=== PATIENT | female | born 1985 | race Caucasian/White ===

== ENCOUNTER 2017-04-09 13:14 | Emergency (ER) | payer MEDICARE ==
[~2017-04-09 13:14] MED LIST: BACTRIM DS TAB1 EACH PO; HYDROCHLOROTHIA25 MG PO; LISINOPRIL20 MG PO; METOPROLOL TART50 MG PO; PROZAC40 MG PO; SEROQUEL100 MG PO
[2017-07-14] MEDS ORDERED: NEURONTIN 300300 MG PO (18:36)
[2017-07-16] MEDS ORDERED: CLINDAMYCIN HC300 MG PO (12:29)
== END 2017-04-09 14:34 | disposition home or self-care (01) ==
LOC: ER1 13:14
DX: Z48.817 Encounter for surgical aftercare following surgery on the skin and subcutaneous tissue (principal); I10 Essential (primary) hypertension; F17.210 Nicotine dependence, cigarettes, uncomplicated; Z88.0 Allergy status to penicillin; Z88.8 Allergy status to other drugs, medicaments and biological substances
CPT/HCPCS: 99282

== ENCOUNTER → 2017-04-10 | Outpatient (CLI) | payer MEDICARE ==
[~2017-04-10] MED LIST changes: +CLINDAMYCIN HC300 MG PO; +NEURONTIN 300300 MG PO
== END ==
LOC: OPSV 04-09 08:39
DX: L02.512 Cutaneous abscess of left hand (principal)
CPT/HCPCS: G0463

== ENCOUNTER → 2017-04-11 | Outpatient (CLI) | payer MEDICARE | LOC: OPSV 13:25 | DX: L02.512 Cutaneous abscess of left hand (principal) | CPT/HCPCS: G0463 ==

== ENCOUNTER → 2017-04-12 | Outpatient (CLI) | payer MEDICARE | LOC: OPSV 11:20 | DX: L02.512 Cutaneous abscess of left hand (principal) | CPT/HCPCS: G0463 ==

== ENCOUNTER → 2021-02-04 | Outpatient (CLI) | payer OTHER ==
[~2021-02-04] MED LIST changes: +BASAGLAR K100 UNIT/1 SQ; +HUMALOG100 UNIT/3 SC; +KEFLEX500 MG PO; +LISINOPRIL10 MG PO; -LISINOPRIL20 MG PO; +LYRICA200 MG PO; +METHADONE HCL10 MG PO; +METOPROLOL TART25 MG PO; -METOPROLOL TART50 MG PO; +NAPROSYN500 MG PO; +POVIDONE-IOD28.35 GM TOP; +PROZAC 20 MG CA20 MG PO; +SILVER SULFADIAZINE TOP; +SKIN TREATMENT400 GM TOP; +VITAMIN D325 MCG PO; +VRAYLAR4.5 MG PO; +Voltaren Gel 1 % TOP
== END ==
LOC: WCC 10:15
DX: E11.622 Type 2 diabetes mellitus with other skin ulcer (principal); T23.201A Burn of second degree of right hand, unspecified site, initial encounter; E11.610 Type 2 diabetes mellitus with diabetic neuropathic arthropathy; L97.925 Non-pressure chronic ulcer of unspecified part of left lower leg with muscle involvement without evidence of necrosis; G47.30 Sleep apnea, unspecified; I10 Essential (primary) hypertension; Z79.4 Long term (current) use of insulin; Z72.0 Tobacco use; X58.XXXA Exposure to other specified factors, initial encounter

== ENCOUNTER → 2021-02-11 | Outpatient (CLI) | payer OTHER | LOC: WCC 09:00 | DX: T23.201A Burn of second degree of right hand, unspecified site, initial encounter (principal); E10.622 Type 1 diabetes mellitus with other skin ulcer; E10.610 Type 1 diabetes mellitus with diabetic neuropathic arthropathy; L97.925 Non-pressure chronic ulcer of unspecified part of left lower leg with muscle involvement without evidence of necrosis; G47.30 Sleep apnea, unspecified; I10 Essential (primary) hypertension; Z79.4 Long term (current) use of insulin; Z72.0 Tobacco use; X58.XXXA Exposure to other specified factors, initial encounter | CPT/HCPCS: 73562; 73590; 83036; 87070; 87205 ==

== ENCOUNTER → 2021-02-19 | Outpatient (CLI) | payer OTHER | LOC: WCC 11:12 | DX: E10.622 Type 1 diabetes mellitus with other skin ulcer (principal); L97.925 Non-pressure chronic ulcer of unspecified part of left lower leg with muscle involvement without evidence of necrosis; T23.261A Burn of second degree of back of right hand, initial encounter; T31.0 Burns involving less than 10% of body surface; E10.610 Type 1 diabetes mellitus with diabetic neuropathic arthropathy; G47.30 Sleep apnea, unspecified; I10 Essential (primary) hypertension; F17.210 Nicotine dependence, cigarettes, uncomplicated; Z79.2 Long term (current) use of antibiotics; Z79.899 Other long term (current) drug therapy ==

== ENCOUNTER → 2021-02-26 | Outpatient (CLI) | payer OTHER | LOC: WCC 11:00 | DX: E10.622 Type 1 diabetes mellitus with other skin ulcer (principal); L97.925 Non-pressure chronic ulcer of unspecified part of left lower leg with muscle involvement without evidence of necrosis; T23.261D Burn of second degree of back of right hand, subsequent encounter; T31.0 Burns involving less than 10% of body surface; E10.610 Type 1 diabetes mellitus with diabetic neuropathic arthropathy; I10 Essential (primary) hypertension; F17.210 Nicotine dependence, cigarettes, uncomplicated; G47.30 Sleep apnea, unspecified; Z79.2 Long term (current) use of antibiotics; Z79.899 Other long term (current) drug therapy; X08.8XXD Exposure to other specified smoke, fire and flames, subsequent encounter | CPT/HCPCS: 82962 ==

== ENCOUNTER → 2021-03-05 | Outpatient (CLI) | payer OTHER | LOC: WCC 11:00 | DX: E10.622 Type 1 diabetes mellitus with other skin ulcer (principal); L97.925 Non-pressure chronic ulcer of unspecified part of left lower leg with muscle involvement without evidence of necrosis; T23.261D Burn of second degree of back of right hand, subsequent encounter; T31.0 Burns involving less than 10% of body surface; E10.610 Type 1 diabetes mellitus with diabetic neuropathic arthropathy; G47.30 Sleep apnea, unspecified; I10 Essential (primary) hypertension; F17.210 Nicotine dependence, cigarettes, uncomplicated; Z79.2 Long term (current) use of antibiotics; Z79.899 Other long term (current) drug therapy ==

== ENCOUNTER → 2021-03-11 | Outpatient (CLI) | payer OTHER | LOC: WCC 10:45 | DX: S81.002A Unspecified open wound, left knee, initial encounter (principal); T23.261A Burn of second degree of back of right hand, initial encounter; E10.622 Type 1 diabetes mellitus with other skin ulcer; E10.610 Type 1 diabetes mellitus with diabetic neuropathic arthropathy; I10 Essential (primary) hypertension; Z79.4 Long term (current) use of insulin; I96 Gangrene, not elsewhere classified; G47.30 Sleep apnea, unspecified; Z72.0 Tobacco use; T31.0 Burns involving less than 10% of body surface; V89.2XXA Person injured in unspecified motor-vehicle accident, traffic, initial encounter ==

== ENCOUNTER → 2021-04-12 | Outpatient (CLI) | payer OTHER | LOC: WCC 14:06 | DX: E10.622 Type 1 diabetes mellitus with other skin ulcer (principal); L97.925 Non-pressure chronic ulcer of unspecified part of left lower leg with muscle involvement without evidence of necrosis; E10.610 Type 1 diabetes mellitus with diabetic neuropathic arthropathy; T23.201A Burn of second degree of right hand, unspecified site, initial encounter; G47.30 Sleep apnea, unspecified; I10 Essential (primary) hypertension; F17.210 Nicotine dependence, cigarettes, uncomplicated; Z79.899 Other long term (current) drug therapy ==

== ENCOUNTER → 2021-04-22 | Outpatient (CLI) | payer OTHER | LOC: WCC 08:30 | PROC: 0JBP0ZZ Excision of Left Lower Leg Subcutaneous Tissue and Fascia, Open Approach (ICD-10-PCS; principal; 2021-04-22) | DX: S81.002A Unspecified open wound, left knee, initial encounter (principal); E10.622 Type 1 diabetes mellitus with other skin ulcer; L97.825 Non-pressure chronic ulcer of other part of left lower leg with muscle involvement without evidence of necrosis; E10.610 Type 1 diabetes mellitus with diabetic neuropathic arthropathy; T23.201A Burn of second degree of right hand, unspecified site, initial encounter; F17.210 Nicotine dependence, cigarettes, uncomplicated; G47.30 Sleep apnea, unspecified; I10 Essential (primary) hypertension; I49.9 Cardiac arrhythmia, unspecified; E10.40 Type 1 diabetes mellitus with diabetic neuropathy, unspecified; Z79.899 Other long term (current) drug therapy; V89.2XXA Person injured in unspecified motor-vehicle accident, traffic, initial encounter; X08.8XXA Exposure to other specified smoke, fire and flames, initial encounter ==

== ENCOUNTER 2021-04-25 01:11 | Inpatient (IN) | payer OTHER ==
[~2021-04-25] VITALS: Ht 195.6 cm; Wt 131.5 kg
[~2021-04-25 01:11] MED LIST changes: -BASAGLAR K100 UNIT/1 SQ; -HUMALOG100 UNIT/3 SC; -LISINOPRIL10 MG PO; -LYRICA200 MG PO; -METHADONE HCL10 MG PO; -METOPROLOL TART25 MG PO; -POVIDONE-IOD28.35 GM TOP; -PROZAC40 MG PO; -SILVER SULFADIAZINE TOP; -SKIN TREATMENT400 GM TOP; -VITAMIN D325 MCG PO; -VRAYLAR4.5 MG PO
[2021-04-25] MEDS ORDERED: METOPROLOL TART25 MG PO (01:53)
[2021-04-25] MEDS ORDERED: PROZAC40 MG PO (01:56)
[2021-04-25] MEDS ORDERED: LISINOPRIL10 MG PO (01:56)
[2021-04-25 03:40] LABS: HEMOGLOBIN 12.6 gm/dl (12.3-15.3); RED BLOOD COUNT 4.64 M/UL (4.00-5.10); WHITE BLOOD COUNT 14.6 K/UL (4.5-11.0)
[2021-04-25 03:57] LABS: BUN/CREATININE RATIO 16 (0-10)
[2021-04-25] MEDS ORDERED: POVIDONE-IOD28.35 GM TOP (10:49)
[2021-04-25] MEDS ORDERED: SKIN TREATMENT400 GM TOP (10:50)
[2021-04-25] MEDS ORDERED: SILVER SULFADIAZINE TOP (10:52)
[2021-04-25] MEDS ORDERED: VRAYLAR4.5 MG PO (10:53)
[2021-04-25] MEDS ORDERED: LYRICA200 MG PO (10:53)
[2021-04-25] MEDS ORDERED: BACTRIM DS TAB1 EACH PO (10:53)
[2021-04-25] MEDS ORDERED: HUMALOG100 UNIT/3 SC (10:59)
[2021-04-25] MEDS ORDERED: BASAGLAR K100 UNIT/1 SQ (11:00)
[2021-04-25] MEDS ORDERED: METHADONE HCL10 MG PO (11:03)
[2021-04-26 07:34] LABS: RED BLOOD COUNT 4.65 M/UL (4.00-5.10); WHITE BLOOD COUNT 7.4 K/UL (4.5-11.0)
[2021-04-26 07:43] LABS: BUN/CREATININE RATIO 20 (0-10)
[2021-04-27 05:06] LABS: HEMOGLOBIN 12.8 gm/dl (12.3-15.3); RED BLOOD COUNT 4.76 M/UL (4.00-5.10); WHITE BLOOD COUNT 8.3 K/UL (4.5-11.0)
[2021-04-27 05:27] LABS: BUN/CREATININE RATIO 18 (0-10)
--- NOTE | 2021-04-27 23:07 | NUR ---
PT DEVELOPED HIVES ON ARM AFTER GETTING BLOOD PRESSURE TAKEN ON ARM THE IV AND VANCOMYCIN WAS RUNNING IN. BLOOD PRESSURE CUFF WAS ON UPPER ARM, IV WAS ON LOWER. IV WAS IMMEDIATELY STOPPED. PLACEMENT OF IV WAS VERIFIED. DR. CHA WAS CONTACTED AND SAID IT WAS LIKELY A REACTION TO THE VANCOMYCIN AND ORDERED BENADRYL. BEFORE BENADRYL COULD BE ADMINISTERED, PATIENT LEFT FLOOR TO SMOKE.
[2021-04-28 05:13] LABS: HEMOGLOBIN 12.3 gm/dl (12.3-15.3); RED BLOOD COUNT 4.63 M/UL (4.00-5.10); WHITE BLOOD COUNT 8.7 K/UL (4.5-11.0)
[2021-04-28] MEDS ORDERED: BACTRIM DS TAB1 EACH PO (10:35)
[2021-04-28] MEDS ORDERED: VITAMIN D325 MCG PO (10:37)
== END 2021-04-28 12:30 | disposition home or self-care (01) | DRG 623 ==
LOC: ER1 01:11 → CDU 05:37 → M/S 15:14
PROVIDERS: Emergency Medicine; Internal Medicine; Physician Assistant Medical; ADMIT Internal Medicine
PROC: 0JBQ0ZZ Excision of Right Foot Subcutaneous Tissue and Fascia, Open Approach (ICD-10-PCS; principal; 2021-04-27)
PROC: 0HBRXZZ Excision of Toe Nail, External Approach (ICD-10-PCS; 2021-04-27)
DX: E11.621 Type 2 diabetes mellitus with foot ulcer (principal); L97.419 Non-pressure chronic ulcer of right heel and midfoot with unspecified severity; L03.115 Cellulitis of right lower limb; M86.8X7 Other osteomyelitis, ankle and foot; F32.9 Major depressive disorder, single episode, unspecified; E11.40 Type 2 diabetes mellitus with diabetic neuropathy, unspecified; F41.9 Anxiety disorder, unspecified; E66.9 Obesity, unspecified; E11.69 Type 2 diabetes mellitus with other specified complication; E11.628 Type 2 diabetes mellitus with other skin complications; E55.9 Vitamin D deficiency, unspecified; B37.3 Candidiasis of vulva and vagina; Z20.822 Contact with and (suspected) exposure to COVID-19; F17.210 Nicotine dependence, cigarettes, uncomplicated; I10 Essential (primary) hypertension; Z83.3 Family history of diabetes mellitus; Z98.890 Other specified postprocedural states; Z68.34 Body mass index [BMI] 34.0-34.9, adult
CPT/HCPCS: 36415; 73620; 73721; 80048; 80053; 80202; 82550; 82553; 82962; 83036; 83735; 84439; 84443; 84484; 85025; 85027; 85652; 86140; 87040; 87070; 87077; 87186; 87205; 93005; 93926; 93970; 96365; 96366; 96367; 96372; 96375; 96376; 99285; G0378; J1200; J1650; J1885; J1956; J2185; J3370; J7030; J7050; J7070; U0002

== ENCOUNTER → 2021-04-30 | Outpatient (CLI) | payer OTHER ==
[~2021-04-30] MED LIST changes: +BASAGLAR K100 UNIT/1 SQ; +HUMALOG100 UNIT/3 SC; +LISINOPRIL10 MG PO; +LYRICA200 MG PO; +METHADONE HCL10 MG PO; +METOPROLOL TART25 MG PO; +POVIDONE-IOD28.35 GM TOP; +PROZAC40 MG PO; +SILVER SULFADIAZINE TOP; +SKIN TREATMENT400 GM TOP; +VITAMIN D325 MCG PO; +VRAYLAR4.5 MG PO
== END ==
LOC: WCC 10:55
DX: E10.622 Type 1 diabetes mellitus with other skin ulcer (principal); E10.610 Type 1 diabetes mellitus with diabetic neuropathic arthropathy; L97.925 Non-pressure chronic ulcer of unspecified part of left lower leg with muscle involvement without evidence of necrosis; G47.30 Sleep apnea, unspecified; I10 Essential (primary) hypertension; T23.201A Burn of second degree of right hand, unspecified site, initial encounter; Z79.4 Long term (current) use of insulin; Z72.0 Tobacco use
CPT/HCPCS: 97597

== ENCOUNTER 2021-10-20 19:33 | Emergency (ER) | payer OTHER ==
[2021-10-20] MEDS ORDERED: CYCLOBENZAPRINE10 MG PO (21:09)
[2021-10-20] MEDS ORDERED: PREDNISONE 20 M20 MG PO (21:09)
[2021-10-20] MEDS ORDERED: HYDROCODON-ACE1 EAC4 PO (21:09)
== END 2021-10-20 21:48 | disposition home or self-care (01) ==
LOC: ER1 19:33
DX: M54.41 Lumbago with sciatica, right side (principal); I10 Essential (primary) hypertension; E11.40 Type 2 diabetes mellitus with diabetic neuropathy, unspecified; Z88.0 Allergy status to penicillin; F17.200 Nicotine dependence, unspecified, uncomplicated
CPT/HCPCS: 72131; 96372; 99283; J1885

== ENCOUNTER → 2021-11-10 | Outpatient (CLI) | payer OTHER ==
[~2021-11-10] MED LIST changes: +CYCLOBENZAPRINE10 MG PO; +HYDROCODON-ACE1 EAC4 PO; +PREDNISONE 20 M20 MG PO
== END ==
LOC: RAD 17:21
DX: M54.31 Sciatica, right side (principal); R04.2 Hemoptysis; M47.816 Spondylosis without myelopathy or radiculopathy, lumbar region; R91.8 Other nonspecific abnormal finding of lung field
CPT/HCPCS: 71046; 73502

== ENCOUNTER 2021-11-15 14:58 | Inpatient (IN) | payer OTHER ==
[~2021-11-15] VITALS: Ht 195.6 cm; Wt 152.4 kg
[~2021-11-15 14:58] MED LIST changes: -METHADONE HCL10 MG PO; -PROZAC 20 MG CA20 MG PO
[2021-11-15 17:30] LABS: HEMOGLOBIN 12.2 gm/dl (12.3-15.3); RED BLOOD COUNT 4.59 M/UL (4.00-5.10); WHITE BLOOD COUNT 11.3 K/UL (4.5-11.0)
[2021-11-15 17:56] LABS: BUN/CREATININE RATIO 16 (0-10)
[2021-11-16 05:21] LABS: HEMOGLOBIN 12.7 gm/dl (12.3-15.3); RED BLOOD COUNT 4.91 M/UL (4.00-5.10); WHITE BLOOD COUNT 8.8 K/UL (4.5-11.0)
[2021-11-16 05:56] LABS: BUN/CREATININE RATIO 18 (0-10)
[2021-11-16] MEDS ORDERED: PROZAC 20 MG CA20 MG PO (10:55)
[2021-11-16] MEDS ORDERED: METHADONE10 MG/1 M1 PO (11:03)
[2021-11-16] MEDS ORDERED: ALBUTEROL2.5 MG/3 M NEB (14:08)
[2021-11-16] MEDS ORDERED: LEVOFLOXACIN750 MG PO (14:08)
[2021-11-16] MEDS ORDERED: PROAIR DIGIHAL90 MCG INH (14:09)
[2021-11-16] MEDS ORDERED: TIZANIDINE HCL4 MG PO (14:09)
[2021-11-16] MEDS ORDERED: DIPROSONE 0.05%15 GM TOP (14:10)
[2021-11-16] MEDS ORDERED: DOCUSATE SODIU100 MG PO (14:12)
[2021-11-16] MEDS ORDERED: TRULICITY1.5 MG/0.5 SQ (14:13)
[2021-11-16] MEDS ORDERED: GLIPIZIDE5 MG PO (14:13)
[2021-11-16] MEDS ORDERED: QUETIAPINE FUM200 MG PO (14:14)
[2021-11-16] MEDS ORDERED: NEXIUM40 MG PO (14:15)
[2021-11-16 14:40] LABS: BORDETELLA PARAPERTUSSIS Not Detected (Not Detectd); BORDETELLA PERTUSSIS Not Detected (Not Detectd); CHLAMYDIA PNEUMONIAE Not Detected (Not Detectd); CORONAVIRUS HKU1 Not Detected (Not Detectd); CORONAVIRUS NL63 Not Detected (Not Detectd); CORONAVIRUS OC43 Not Detected (Not Detectd); CORONOAVIRUS 229E Not Detected (Not Detectd); HUMAN METAPNEUMOVIRUS Not Detected (Not Detectd); HUMAN RHINOVIRUS/ENTEROVIRUS Not Detected (Not Detectd); INFLUENZA A Not Detected (Not Detectd); INFLUENZA B Not Detected (Not Detectd); MYCOPLASMA PNEUMONIAE Not Detected (Not Detectd); PARAINFLUENZA VIRUS 1 Not Detected (Not Detectd); PARAINFLUENZA VIRUS 2 Not Detected (Not Detectd); PARAINFLUENZA VIRUS 3 Not Detected (Not Detectd); PARAINFLUENZA VIRUS 4 Not Detected (Not Detectd); RESPIRATORY SYNCYTIAL VIRUS Not Detected (Not Detectd)
[2021-11-16 16:00] LABS: SARS-CoV-2 NOT DETECTED (Not Detectd)
[2021-11-17 08:19] LABS: HEMOGLOBIN 11.9 gm/dl (12.3-15.3); RED BLOOD COUNT 4.54 M/UL (4.00-5.10); WHITE BLOOD COUNT 9.6 K/UL (4.5-11.0)
[2021-11-17 08:40] LABS: BUN/CREATININE RATIO 27 (0-10)
[2021-11-17] MEDS ORDERED: [UNRECOGNIZED DRUG - OTHER] SC (14:12)
[2021-11-17] MEDS ORDERED: [UNRECOGNIZED DRUG - OTHER] (17:19)
[2021-11-18 06:56] LABS: RED BLOOD COUNT 4.64 M/UL (4.00-5.10); WHITE BLOOD COUNT 7.9 K/UL (4.5-11.0)
[2021-11-18 07:22] LABS: BUN/CREATININE RATIO 32 (0-10)
[2021-11-18] MEDS ORDERED: ZITHROMAX500 MG PO (15:36)
[2021-11-18] MEDS ORDERED: LASIX 40 MG TAB40 MG PO (16:02)
[2021-11-18] MEDS ORDERED: KLOR-CON 1010 MEQ PO (16:02)
== END 2021-11-18 16:40 | disposition home or self-care (01) | DRG 291 ==
LOC: ER1 14:58 → CDU 22:12 → MED SURG 4 11-16 12:00
PROVIDERS: Internal Medicine; Student in an Organized Health Care Education/Training Program; ADMIT Internal Medicine
PROC: B24BZZZ Ultrasonography of Heart with Aorta (ICD-10-PCS; principal; 2021-11-14)
DX: I11.0 Hypertensive heart disease with heart failure (principal); J96.01 Acute respiratory failure with hypoxia; Z20.822 Contact with and (suspected) exposure to COVID-19; I50.33 Acute on chronic diastolic (congestive) heart failure; J84.9 Interstitial pulmonary disease, unspecified; E66.2 Morbid (severe) obesity with alveolar hypoventilation; F11.20 Opioid dependence, uncomplicated; E87.1 Hypo-osmolality and hyponatremia; E11.42 Type 2 diabetes mellitus with diabetic polyneuropathy; F32.A Depression, unspecified; F41.9 Anxiety disorder, unspecified; M51.36 Other intervertebral disc degeneration, lumbar region; J40 Bronchitis, not specified as acute or chronic; G47.00 Insomnia, unspecified; M54.16 Radiculopathy, lumbar region; Z96.41 Presence of insulin pump (external) (internal); E11.65 Type 2 diabetes mellitus with hyperglycemia; G47.33 Obstructive sleep apnea (adult) (pediatric); F17.210 Nicotine dependence, cigarettes, uncomplicated; Z91.14 Patient's other noncompliance with medication regimen; Z79.4 Long term (current) use of insulin; Z87.828 Personal history of other (healed) physical injury and trauma; Z83.6 Family history of other diseases of the respiratory system; Z83.3 Family history of diabetes mellitus; Z98.890 Other specified postprocedural states; Z71.6 Tobacco abuse counseling; Z68.39 Body mass index [BMI] 39.0-39.9, adult
CPT/HCPCS: ECHO; 36415; 36600; 71045; 80048; 80053; 82550; 82553; 82803; 82962; 83880; 84484; 85025; 85027; 86140; 87081; 87633; 93005; 93306; 94640; 94664; 94760; 96372; 96374; 96375; 96376; 99285; J1650; J1885; J1940; J1956; J2185; J2270; J2405; J2920; Q9967; U0002

== ENCOUNTER → 2021-12-02 | Outpatient (CLI) | payer OTHER ==
[~2021-12-02] MED LIST changes: +ALBUTEROL2.5 MG/3 M NEB; +DIPROSONE 0.05%15 GM TOP; +DOCUSATE SODIU100 MG PO; +GLIPIZIDE5 MG PO; +KLOR-CON 1010 MEQ PO; +LASIX 40 MG TAB40 MG PO; +LEVOFLOXACIN750 MG PO; +METHADONE10 MG/1 M1 PO; +NEXIUM40 MG PO; +PROAIR DIGIHAL90 MCG INH; +PROZAC 20 MG CA20 MG PO; +QUETIAPINE FUM200 MG PO; +TIZANIDINE HCL4 MG PO; +TRULICITY1.5 MG/0.5 SQ; +ZITHROMAX500 MG PO; +[UNRECOGNIZED DRUG - OTHER]; +[UNRECOGNIZED DRUG - OTHER] SC
== END ==
LOC: RAD 17:33
DX: R05.3 Chronic cough (principal)
CPT/HCPCS: 71046

== ENCOUNTER → 2022-01-12 | Outpatient (CLI) | payer OTHER | LOC: KOH-I 12-30 16:00 | DX: J84.9 Interstitial pulmonary disease, unspecified (principal); I50.9 Heart failure, unspecified; M54.10 Radiculopathy, site unspecified; Z98.890 Other specified postprocedural states; Z87.828 Personal history of other (healed) physical injury and trauma; M51.26 Other intervertebral disc displacement, lumbar region; M48.061 Spinal stenosis, lumbar region without neurogenic claudication; R91.8 Other nonspecific abnormal finding of lung field | CPT/HCPCS: 71250; 72148 ==

== ENCOUNTER 2022-02-13 00:07 | Emergency (ER) | payer OTHER | END 2022-02-13 02:16 | disposition home or self-care (01) | LOC: ER1 00:07 | DX: M54.10 Radiculopathy, site unspecified (principal); E11.42 Type 2 diabetes mellitus with diabetic polyneuropathy; F17.210 Nicotine dependence, cigarettes, uncomplicated; E66.9 Obesity, unspecified | CPT/HCPCS: 96372; 99283 ==

== ENCOUNTER 2022-03-04 23:44 | Observation (INO) | payer OTHER ==
[~2022-03-04] VITALS: Ht 195.6 cm; Wt 142.9 kg
[~2022-03-04 23:44] MED LIST changes: +ALBUTEROL2.5 MG/3 M INH; -ALBUTEROL2.5 MG/3 M NEB; -QUETIAPINE FUM200 MG PO; +QUETIAPINE FUM300 MG PO; -TRULICITY1.5 MG/0.5 SQ; +TRULICITY4.5 MG/0.5 SQ
[2022-03-05 00:28] LABS: RED BLOOD COUNT 4.96 M/UL (4.00-5.10); WHITE BLOOD COUNT 10.5 K/UL (4.5-11.0)
[2022-03-05 00:48] LABS: BUN/CREATININE RATIO 20 (0-10)
[2022-03-05] MEDS ORDERED: FLUOXETINE HCL40 MG PO (12:03)
[2022-03-05] MEDS ORDERED: ACETAMINOPHEN500 MG PO (12:06)
[2022-03-05] MEDS ORDERED: CETIRIZINE HCL10 MG PO (12:07)
[2022-03-05] MEDS ORDERED: DOCUSATE SODIU250 MG PO (12:08)
[2022-03-05] MEDS ORDERED: EPINEPHRIN0.3 MG/0.3 INJ (12:09)
[2022-03-05] MEDS ORDERED: FUROSEMIDE40 MG PO (12:10)
[2022-03-05] MEDS ORDERED: IBU800 MG PO (12:11)
[2022-03-05] MEDS ORDERED: HUMALOG100 UNIT/3 SQ (12:12)
[2022-03-05] MEDS ORDERED: LANTUS SOL100 UNIT/1 SQ (12:12)
[2022-03-05] MEDS ORDERED: METHOCARBAMOL500 MG PO (12:14)
[2022-03-05] MEDS ORDERED: MIRALAX 119 GR119 GM PO (12:17)
[2022-03-05] MEDS ORDERED: POTASSIUM CHLO10 ME1 PO (12:18)
[2022-03-05] MEDS ORDERED: AMMONIUM LACTA140 GM TOP (12:19)
[2022-03-05] MEDS ORDERED: VRAYLAR4.5 MG PO (12:20)
[2022-03-05 14:14] LABS: BUN/CREATININE RATIO 28 (0-10)
[2022-03-05 17:41] LABS: BUN/CREATININE RATIO 26 (0-10)
[2022-03-06 02:36] LABS: HEMOGLOBIN 11.5 gm/dl (12.3-15.3); RED BLOOD COUNT 4.54 M/UL (4.00-5.10)
[2022-03-06 02:37] LABS: WHITE BLOOD COUNT 7.6 K/UL (4.5-11.0)
[2022-03-06 03:10] LABS: BUN/CREATININE RATIO 37 (0-10)
[2022-03-07 06:27] LABS: HEMOGLOBIN 12.4 gm/dl (12.3-15.3); RED BLOOD COUNT 4.86 M/UL (4.00-5.10); WHITE BLOOD COUNT 5.9 K/UL (4.5-11.0)
[2022-03-07 06:56] LABS: BUN/CREATININE RATIO 39 (0-10)
--- NOTE | 2022-03-07 09:45 | NUR ---
PT OFF UNIT UNABLE TO OBTAIN BLOOD GLUCOSE AND GIVE THE IV INSULIN ORDERED BY DR RICE FOR ADDITIONAL COVERAGE, AWAITING FOR HER RETURN.
--- NOTE | 2022-03-07 10:47 | NUR ---
PT OFF UNIT AGAIN, I HAVE ALSO EDUCATED HER THAT THE MILK SHAKE FROM [employer] AND FAST FOOD SHE WAS EATING THIS AM WERE HIGH CONTRINUTING FACTORS TO HER DIABETES, SHE VERBLAIZED UNDERSTADNDING BUT STATES THAT 437 IS GOOD FOR HER.
--- NOTE | 2022-03-07 12:36 | NUR ---
PT IS OFF UNIT, NEED BLOODSUGAR TAKEN
[2022-03-07] MEDS ORDERED: FUROSEMIDE40 MG PO (14:27)
--- NOTE | 2022-03-07 14:48 | NUR ---
PT HAD RETURNED TO UNIT ASKING TO SEE ADMINISTRATION CLERK AFTER DR RICE SAID HE WAS DISCHARGING HER.. STATED STAFF SHOULD HAVE CAME TO FIND HER WHEN THE DOCTOR MADE ROUNDS I EXPLAINED THAT WAS NOT EASY TO DO WE HAD OTHER PATIENTS AND IT WAS NOT SAFE FOR THEMTO BE LEFT TO GO FIND ANAMBULATORY PATIENT. DR RICE HAD VISITED THE UNIT TO SEE HER MULTIPLE TIMES AND SHE WAS GONE EACH TIME. SHE HAD MISSED HER ACCU CHECKS AND TIMELY MEDS. 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
--- NOTE | 2022-03-07 15:01 | NUR ---
I ATTEMPTED DISCHARGE AND PT WAS NOT IN ROOM, HER BELONGINS ARE STILL IN THE ROOM.
== END 2022-03-07 14:57 | disposition left against medical advice (07) ==
LOC: ER1 23:44 → CDU 03-05 05:19 → M/S 03-05 05:19
PROVIDERS: Internal Medicine; Physician Assistant; ADMIT Internal Medicine
DX: I11.0 Hypertensive heart disease with heart failure (principal); I50.33 Acute on chronic diastolic (congestive) heart failure; G89.29 Other chronic pain; M54.9 Dorsalgia, unspecified; E11.40 Type 2 diabetes mellitus with diabetic neuropathy, unspecified; F17.210 Nicotine dependence, cigarettes, uncomplicated; F11.20 Opioid dependence, uncomplicated; E66.2 Morbid (severe) obesity with alveolar hypoventilation; Z68.37 Body mass index [BMI] 37.0-37.9, adult; Z20.822 Contact with and (suspected) exposure to COVID-19; Z88.0 Allergy status to penicillin; Z88.8 Allergy status to other drugs, medicaments and biological substances; Z79.4 Long term (current) use of insulin; Z79.899 Other long term (current) drug therapy
CPT/HCPCS: 0240U; 36415; 71045; 80048; 80053; 80307; 81001; 82550; 82553; 82803; 82962; 83735; 83880; 84100; 84484; 84703; 85025; 85610; 85730; 86140; 87086; 93005; 93970; 94640; 94664; 94760; 96372; 96374; 96375; 96376; 99285; G0378; J1650; J1885; J1940; J2930; Q9967

== ENCOUNTER → 2022-03-10 | Outpatient (CLI) | payer OTHER ==
[~2022-03-10] MED LIST changes: +ACETAMINOPHEN500 MG PO; +AMMONIUM LACTA140 GM TOP; +CETIRIZINE HCL10 MG PO; +DOCUSATE SODIU250 MG PO; +EPINEPHRIN0.3 MG/0.3 INJ; +FLUOXETINE HCL40 MG PO; +FUROSEMIDE40 MG PO; +HUMALOG100 UNIT/3 SQ; +IBU800 MG PO; +LANTUS SOL100 UNIT/1 SQ; +METHOCARBAMOL500 MG PO; +MIRALAX 119 GR119 GM PO; +POTASSIUM CHLO10 ME1 PO
== END ==
LOC: LAB 16:19
DX: E11.9 Type 2 diabetes mellitus without complications (principal); Z79.4 Long term (current) use of insulin
CPT/HCPCS: 36415; 83036

== ENCOUNTER 2022-04-02 02:04 | Emergency (ER) | payer OTHER | END 2022-04-02 02:15 | disposition left against medical advice (07) | LOC: ER1 02:04 | DX: Z53.21 Procedure and treatment not carried out due to patient leaving prior to being seen by health care provider (principal) ==

== ENCOUNTER 2022-04-04 19:26 | Emergency (ER) | payer OTHER ==
[2022-04-04 20:01] LABS: HEMOGLOBIN 12.7 gm/dl (12.3-15.3); RED BLOOD COUNT 4.78 M/UL (4.00-5.10); WHITE BLOOD COUNT 7.8 K/UL (4.5-11.0)
[2022-04-04 20:28] LABS: BUN/CREATININE RATIO 24 (0-10)
== END 2022-04-04 22:37 | disposition home or self-care (01) ==
LOC: ER1 19:26
PROVIDERS: Nurse Practitioner
DX: G89.29 Other chronic pain (principal); M54.50 Low back pain, unspecified; E11.65 Type 2 diabetes mellitus with hyperglycemia; F17.200 Nicotine dependence, unspecified, uncomplicated; G47.33 Obstructive sleep apnea (adult) (pediatric); E66.01 Morbid (severe) obesity due to excess calories; Z88.8 Allergy status to other drugs, medicaments and biological substances
CPT/HCPCS: 71045; 80053; 81001; 82550; 82553; 84484; 84703; 85025; 93005; 99284

== ENCOUNTER → 2022-05-06 | Outpatient (CLI) | payer OTHER | LOC: US 09:55 | DX: R14.0 Abdominal distension (gaseous) (principal); R16.1 Splenomegaly, not elsewhere classified; K76.0 Fatty (change of) liver, not elsewhere classified; K80.20 Calculus of gallbladder without cholecystitis without obstruction | CPT/HCPCS: 76700 ==